=== PATIENT | female | born 1950 | race Caucasian/White ===

== ENCOUNTER → 2018-10-14 | Outpatient (CLI) | payer OTHER | END | disposition home or self-care (01) | LOC: RAH 11:33 | PROVIDERS: ATTEND Family Medicine | DX: N63.10 Unspecified lump in the right breast, unspecified quadrant (principal); R92.8 Other abnormal and inconclusive findings on diagnostic imaging of breast | CPT/HCPCS: 76641 ==

== ENCOUNTER → 2019-11-11 | Outpatient (CLI) | payer OTHER | END | disposition home or self-care (01) ==

== ENCOUNTER → 2020-08-09 | Outpatient (CLI) | payer OTHER | END | disposition home or self-care (01) | LOC: RAH 11:35 | DX: M17.12 Unilateral primary osteoarthritis, left knee (principal) | CPT/HCPCS: 73562 ==

== ENCOUNTER 2020-11-30 09:31 | Observation (INO) | payer OTHER ==
[2020-11-25 10:34] LABS: BASOPHILS % (AUTO) 0.5 % (0.0-5.0); EOSINOPHILS % (AUTO) 1.1 % (0.0-8.0); HEMATOCRIT 38.9 % (36-48); MEAN CORPUSCULAR HEMOGLOBIN 29.7 pg (27.0-33.0); MEAN CORPUSCULAR HGB CONC 31.1 g/dL (32.0-36.0); MEAN CORPUSCULAR VOLUME 95.3 fL (79-99); MONOCYTES % (AUTO) 8.3 % (3.0-13.0); NEUTROPHILS % (AUTO) 60.7 % (40.0-77.0); PLATELET COUNT (AUTO) 279 K/uL (130-400); RED BLOOD CELL COUNT(AUTO) 4.08 MIL/uL (4.00-5.50); RED CELL DISTRIBUTION WIDTH 15.6 % (11.0-15.5); WHITE BLOOD COUNT (AUTO) 5.5 K/uL (4.8-10.8)
[2020-11-25 10:38] LABS: APPEARANCE,URINE Clear (CLEAR); BILIRUBIN,URINE Negative (NEGATIVE); COLOR,URINE Yellow (YELLOW); GLUCOSE, URINE (UA) Negative (NEGATIVE); KETONES,URINE Negative (NEGATIVE); LEUKOCYTE ESTERASE ,URINE Trace (NEGATIVE); NITRATE,URINE Negative (NEGATIVE); OCCULT BLOOD,URINE Negative (NEGATIVE); PH,URINE 6.5 (5.0-8.0); PROTEIN,URINE Negative (NEGATIVE); UROBILINOGEN,URINE 0.2 mg/dL (0.2-1.0)
[2020-11-25 10:39] LABS: CREATININE 0.6 mg/dL (0.5-1.5); POTASSIUM 4.4 mmol/L (3.5-5.1)
[2020-11-25 10:42] LABS: INR 0.95 (0.85-1.15); PROTHROMBIN TIME 10.4 SEC (9.6-11.6)
[2020-11-25 11:00] LABS: BACTERIA,URINE None Seen /HPF (None Seen); RBC,URINE 0-1 /HPF (0-1); SQUAMOUS EPITHELIAL CELL,UR None Seen /HPF (0-2); WBC,URINE None Seen /HPF (0-1)
[2020-11-29 16:03] VITALS: BP 142/62
[~2020-11-30] VITALS: Ht 162.6 cm; Wt 72.0 kg
[2020-11-30] VITALS (24 sets, daily range): BP systolic 90–137; BP diastolic 47–72
[2020-11-30] MEDS: CLINDAMYCIN IVPB 900MG/50ML 50 ML IV SCH ×2 (08:00→16:50)
[~2020-11-30 09:31] MED LIST: ATOR10TA69 PO; CHOL-4 PO; CYAN1TAB44 PO; ESOM40CA54 PO; IRON-15 PO; MV-M1TAB57 PO; OMEGA 3 PO
[2020-11-30] MEDS ORDERED: LACTATED RINGERS 1000ML 1,000 ML IV ONE (10:25)
[2020-11-30] MEDS ORDERED: CEFAZOLIN SODIUM 1 GM VIAL ONE (10:25)
[2020-11-30] MEDS ORDERED: ACETAMINOPHEN 500 MG TABLET ONE (12:42)
[2020-11-30] MEDS ORDERED: KETOROLAC 15MG/ML VIAL (15MG/ML) ONE (12:43)
[2020-11-30] MEDS ORDERED: TRANEXAMIC ACID 1000MG/10ML ONE ×2 (12:43→18:17)
[2020-11-30] MEDS ORDERED: CLINDAMYCIN IVPB 900MG/50ML 50 ML IV ONE (16:05)
[2020-11-30] MEDS ORDERED: PROPOFOL 10 MG/ML 20ML VIAL IV ONE (16:07)
[2020-11-30] MEDS ORDERED: MIDAZOLAM HCL 1 MG/ML 2ML VIAL ONE (16:07)
[2020-11-30] MEDS ORDERED: LIDOCAINE HCL-MPF 1% 5ML AMP IJ ONE (16:07)
[2020-11-30] MEDS ORDERED: FENTANYL CITRATE PF 50 MCG/1 ML 2ML VIAL ONE (16:07)
[2020-11-30] MEDS ORDERED: ROCURONIUM 10MG/1ML SYR 10 MG/ML ML ONE (16:16)
[2020-11-30] MEDS ORDERED: NEOSTIGMINE 5MG/5ML SYR IV ONE (18:18)
[2020-11-30] MEDS ORDERED: GLYCOPYRROLATE 1 MG/5 ML SYRINGE ONE (18:18)
[2020-11-30] MEDS ORDERED: POTASSIUM CHLORIDE 20MEQ/100ML 100 ML IV PRN (18:30)
[2020-11-30] MEDS ORDERED: DiphenhydrAMINE HCL 50 MG/ML VIAL IVP PRN (18:30)
[2020-11-30] MEDS: 0.9%NACL 1000ML 1,000 ML IV SCH (18:30)
[2020-11-30] MEDS ORDERED: TEMAZEPAM 15 MG CAPSULE PO PRN (18:30)
[2020-11-30] MEDS ORDERED: KCL 20 MEQ ERTAB PO PRN (18:30)
[2020-11-30] MEDS ORDERED: CALCIUM CARB 500MG PO PRN (18:30)
[2020-11-30] MEDS ORDERED: TRAMADOL HCL 50 MG TABLET PO PRN (18:30)
[2020-11-30] MEDS ORDERED: LIDOCAINE HCL-MPF 1% 2ML VIAL IV PRN (18:30)
[2020-11-30] MEDS ORDERED: POTASSIUM CHLORIDE 10% ELIXIR 20 MEQ/15 ML UDCUP PO PRN (18:30)
[2020-11-30] MEDS ORDERED: OXYCODONE HCL 5 MG TAB PO PRN (18:30)
[2020-11-30] MEDS ORDERED: FERROUS FUMARATE 324 MG TABLET PO PRN (18:30)
[2020-11-30] MEDS ORDERED: ONDANSETRON 4MG INJ IVP PRN (18:30)
[2020-11-30] MEDS: CLINDAMYCIN 900MG/6ML INJ ONE ×2 (18:30→18:31)
[2020-11-30] MEDS: CELECOXIB 200 MG CAP PO SCH (21:14)
[2020-11-30] MEDS: OXYCODONE HCL 5 MG TAB PO PRN (21:14)
[2020-11-30] MEDS: ASPIRIN 81MG CHEW TAB PO SCH (21:14)
[2020-11-30] MEDS: ACETAMINOPHEN 500 MG TABLET PO SCH ×2 (21:15→23:22)
[2020-11-30] MEDS: PREGABALIN 25 MG CAP PO SCH (21:19)
[2020-11-30] MEDS: CLINDAMYCIN IVPB 900MG/50ML 50 ML IVPB SCH (23:24)
[2020-12-01 03:43] VITALS: BP 114/63
[2020-12-01 04:01] LABS: HEMATOCRIT 30.2 % (36-48); MEAN CORPUSCULAR HEMOGLOBIN 29.3 pg (27.0-33.0); MEAN CORPUSCULAR HGB CONC 32.1 g/dL (32.0-36.0); MEAN CORPUSCULAR VOLUME 91.2 fL (79-99); RED BLOOD CELL COUNT(AUTO) 3.31 MIL/uL (4.00-5.50); RED CELL DISTRIBUTION WIDTH 14.8 % (11.0-15.5); WHITE BLOOD COUNT (AUTO) 9.1 K/uL (4.8-10.8)
[2020-12-01] MEDS: 0.9%NACL 1000ML 1,000 ML IV SCH ×2 (04:18→09:34)
[2020-12-01 04:32] LABS: CREATININE 0.6 mg/dL (0.5-1.5); POTASSIUM 4.1 mmol/L (3.5-5.1)
[2020-12-01] MEDS: OXYCODONE HCL 5 MG TAB PO PRN ×2 (04:37→20:51)
[2020-12-01] MEDS: CLINDAMYCIN IVPB 900MG/50ML 50 ML IVPB SCH (06:26)
[2020-12-01] MEDS: CELECOXIB 200 MG CAP PO SCH ×2 (07:45→20:29)
[2020-12-01] MEDS: ASPIRIN 81MG CHEW TAB PO SCH ×2 (07:45→20:29)
[2020-12-01] MEDS: PREGABALIN 25 MG CAP PO SCH ×2 (07:45→20:28)
[2020-12-01] MEDS: ATORVASTATIN 10 MG TABLET PO SCH (07:53)
[2020-12-01] MEDS: POLYETHYLENE GLYCOL 3350 17 GM POWD.PACK PO SCH (07:53)
[2020-12-01] MEDS: PANTOPRAZOLE 40 MG TAB DR PO SCH (07:53)
[2020-12-01] MEDS: FOLIC ACID PO SCH (07:54)
[2020-12-01] MEDS: KETOROLAC 15MG/ML VIAL (15MG/ML) IV PRN (07:54)
[2020-12-01] MEDS: CHOLECALCIFEROL 250 MCG PO SCH (07:54)
[2020-12-01] MEDS: CYANOCOBALAMIN PO SCH (07:54)
[2020-12-01 08:00] VITALS: BP 114/54
[2020-12-01] MEDS: ACETAMINOPHEN 500 MG TABLET PO SCH ×2 (10:11→17:49)
[2020-12-01 11:59] VITALS: BP 97/48
[2020-12-01 16:00] VITALS: BP 122/47
[2020-12-01 20:08] VITALS: BP 124/52
[2020-12-02 00:08] VITALS: BP 113/52
[2020-12-02] MEDS: ACETAMINOPHEN 500 MG TABLET PO SCH ×2 (01:12→10:42)
[2020-12-02 04:05] LABS: BASOPHILS % (AUTO) 0.3 % (0.0-5.0); EOSINOPHILS % (AUTO) 0.9 % (0.0-8.0); HEMATOCRIT 27.5 % (36-48); LYMPHOCYTES % (AUTO) 25.5 % (21.0-51.0); MEAN CORPUSCULAR HEMOGLOBIN 29.5 pg (27.0-33.0); MEAN CORPUSCULAR HGB CONC 31.6 g/dL (32.0-36.0); MEAN CORPUSCULAR VOLUME 93.2 fL (79-99); MONOCYTES % (AUTO) 13.6 % (3.0-13.0); NEUTROPHILS % (AUTO) 59.2 % (40.0-77.0); PLATELET COUNT (AUTO) 188 K/uL (130-400); RED BLOOD CELL COUNT(AUTO) 2.95 MIL/uL (4.00-5.50); RED CELL DISTRIBUTION WIDTH 14.9 % (11.0-15.5); WHITE BLOOD COUNT (AUTO) 6.4 K/uL (4.8-10.8)
[2020-12-02 04:08] VITALS: BP 104/51
[2020-12-02 07:51] VITALS: BP 128/53
[2020-12-02] MEDS: KETOROLAC 15MG/ML VIAL (15MG/ML) IV PRN (08:25)
[2020-12-02] MEDS: ASPIRIN 81MG CHEW TAB PO SCH (08:26)
[2020-12-02] MEDS: PREGABALIN 25 MG CAP PO SCH (08:26)
[2020-12-02] MEDS: ATORVASTATIN 10 MG TABLET PO SCH (08:27)
[2020-12-02] MEDS: PANTOPRAZOLE 40 MG TAB DR PO SCH (08:27)
[2020-12-02] MEDS: CELECOXIB 200 MG CAP PO SCH (08:27)
[2020-12-02] MEDS: POLYETHYLENE GLYCOL 3350 17 GM POWD.PACK PO SCH (08:27)
[2020-12-02] MEDS: FOLIC ACID PO SCH (08:28)
[2020-12-02] MEDS: CYANOCOBALAMIN PO SCH (08:28)
[2020-12-02] MEDS: CHOLECALCIFEROL 250 MCG PO SCH (08:28)
[2020-12-02 10:57] VITALS: BP 128/56
[2020-12-02] MEDS ORDERED: AEC81 PO (12:42)
[2020-12-02] MEDS ORDERED: HYDR-4060 PO (12:42)
[2020-12-02] MEDS ORDERED: FERR324T10 PO (12:42)
[2020-12-03] MEDS ORDERED: BISACODYL 10 MG SUPP.RECT RC PRN (18:30)
== END 2020-12-02 15:38 | disposition home health service (06) ==
LOC: DAH 09:31 → 4AH 09:32
PROVIDERS: ADMIT Orthopaedic Surgery; ATTEND Orthopaedic Surgery
DX: M17.12 Unilateral primary osteoarthritis, left knee (principal); E78.00 Pure hypercholesterolemia, unspecified; Z79.899 Other long term (current) drug therapy; Z20.822 Contact with and (suspected) exposure to COVID-19
CPT/HCPCS: 27447; 36415 ×3; 80048 ×2; 81001; 82948; 85025 ×2; 85027; 85610; 87088; 87635; 87641 ×2; 93005; 96361; 96365; 96366; 96375; 96376; 97039 ×4; 97116 ×4; 97161; 97530 ×2; A4215; A4221; A4222; A4223; A4600; A4649 ×3; A4663; A4930; A5120; A9272; C1776; C9803; G0378 ×44; G8978; G8979; G8980; G8981; G8982; G8983; J1885 ×3; J2250; J2704; J2710; J3010; J3490 ×7; J7030; J7120 ×2; J0690

== ENCOUNTER → 2021-07-13 | Outpatient (CLI) | payer MEDICARE, OTHER ==
[~2021-07-13] MED LIST changes: +AEC81 PO; +FERR324T10 PO; +HYDR-4060 PO
== END | disposition home or self-care (01) ==
LOC: RAH 10:42
PROVIDERS: ATTEND Internal Medicine
DX: Z12.31 Encounter for screening mammogram for malignant neoplasm of breast (principal)
CPT/HCPCS: 77067

== ENCOUNTER 2021-08-10 06:18 | Day surgery (SDC) | payer MEDICARE ==
[2021-08-08 10:47] LABS: BASOPHILS % (AUTO) 0.7 % (0.0-5.0); EOSINOPHILS % (AUTO) 1.5 % (0.0-8.0); HEMATOCRIT 36.5 % (36-48); LYMPHOCYTES % (AUTO) 18.3 % (21.0-51.0); MEAN CORPUSCULAR HEMOGLOBIN 28.2 pg (27.0-33.0); MONOCYTES % (AUTO) 7.9 % (3.0-13.0); NEUTROPHILS % (AUTO) 71.5 % (40.0-77.0); PLATELET COUNT (AUTO) 276 K/uL (130-400); RED BLOOD CELL COUNT(AUTO) 4.01 MIL/uL (4.00-5.50); RED CELL DISTRIBUTION WIDTH 13.9 % (11.0-15.5); WHITE BLOOD COUNT (AUTO) 7.2 K/uL (4.8-10.8)
[2021-08-08 10:57] LABS: CREATININE 0.5 mg/dL (0.5-1.5); POTASSIUM 4.6 mmol/L (3.5-5.1)
[2021-08-09 10:11] VITALS: BP 145/71
[~2021-08-10] VITALS: Ht 162.6 cm; Wt 78.9 kg
[2021-08-10] VITALS (16 sets, daily range): BP systolic 115–130; BP diastolic 52–65
[2021-08-10] MEDS: CLINDAMYCIN IVPB 900MG/50ML 50 ML IV SCH ×2 (06:00→08:30)
[~2021-08-10 06:18] MED LIST changes: -AEC81 PO; +APPLE CIDER PO; -CHOL-4 PO; -CYAN1TAB44 PO; +CYAN50003 PO; -FERR324T10 PO; +GABA-529 PO; -HYDR-4060 PO; -IRON-15 PO; -OMEGA 3 PO
[2021-08-10] MEDS ORDERED: LACTATED RINGERS 1000ML 1,000 ML IV ONE (07:08)
[2021-08-10] MEDS ORDERED: LIDOCAINE PF 100MG/5ML (2%) SYRINGE 5ML ONE (07:20)
[2021-08-10] MEDS ORDERED: SUCCINYLCHOLINE 200MG/10ML SYR ONE (07:20)
[2021-08-10] MEDS ORDERED: DEXAMETHASONE SOD PHOSPHATE 10MG/ML 1ML VIAL ONE (07:20)
[2021-08-10] MEDS ORDERED: PROPOFOL 10 MG/ML 20ML VIAL IV ONE (07:20)
[2021-08-10] MEDS ORDERED: NEOSTIGMINE 5MG/5ML SYR IV ONE (07:20)
[2021-08-10] MEDS ORDERED: ONDANSETRON 4MG INJ ONE (07:20)
[2021-08-10] MEDS ORDERED: SUCCINYLCHOLINE CHLORIDE 20 MG/ML 10 ML VIAL ONE (07:20)
[2021-08-10] MEDS ORDERED: GLYCOPYRROLATE 1 MG/5 ML SYRINGE ONE (07:20)
[2021-08-10] MEDS ORDERED: ROCURONIUM 10MG/1ML SYR 10 MG/ML ML ONE (07:21)
[2021-08-10] MEDS ORDERED: FENTANYL CITRATE PF 50 MCG/1 ML 2ML VIAL ONE (07:21)
[2021-08-10] MEDS ORDERED: MIDAZOLAM HCL 1 MG/ML 2ML VIAL ONE (07:21)
[2021-08-10] MEDS ORDERED: 0.9%NACL 1000ML 1,000 ML IV ONE (07:29)
[2021-08-10] MEDS ORDERED: MEPERIDINE-PF 25 MG/ML SYG ONE (08:57)
[2021-08-10] MEDS ORDERED: TRAM50TA4 PO (10:18)
[2021-08-10] MEDS ORDERED: SULF1TAB42 PO (10:18)
[2021-08-10] MEDS ORDERED: KETOROLAC 30MG VIAL (30MG/ML) ONE (10:34)
== END 2021-08-10 11:35 | disposition home or self-care (01) ==
LOC: DAH 06:18
PROVIDERS: ATTEND Orthopaedic Surgery
DX: M25.562 Pain in left knee (principal); Z20.822 Contact with and (suspected) exposure to COVID-19; M25.462 Effusion, left knee; G89.29 Other chronic pain; M19.90 Unspecified osteoarthritis, unspecified site; K21.9 Gastro-esophageal reflux disease without esophagitis; Z96.652 Presence of left artificial knee joint; Z79.899 Other long term (current) drug therapy; Z88.8 Allergy status to other drugs, medicaments and biological substances; Z88.0 Allergy status to penicillin; Z83.3 Family history of diabetes mellitus; Z82.49 Family history of ischemic heart disease and other diseases of the circulatory system; Z88.6 Allergy status to analgesic agent; Z98.890 Other specified postprocedural states
CPT/HCPCS: 29873; 29884; 36415; 80048; 82948; 85025; 87635; A4215; A4221; A4222; A4223; A4649 ×2; A4663; A4930 ×2; A6223; C9803; J0330 ×2; J1100; J1885; J2001; J2175; J2250; J2405; J2704; J2710; J3010; J3490 ×2; J7030; J7120

== ENCOUNTER → 2022-07-26 | Outpatient (CLI) | payer OTHER ==
[~2022-07-26] MED LIST changes: +SULF1TAB42 PO; +TRAM50TA4 PO
== END | disposition home or self-care (01) ==
LOC: RAH 08:20
DX: Z12.31 Encounter for screening mammogram for malignant neoplasm of breast (principal)
CPT/HCPCS: 77067

== ENCOUNTER → 2022-11-07 | Outpatient (CLI) | payer OTHER ==
[~2022-11-07] MED LIST changes: -CYAN50003 PO; +CYAN50007 PO
== END | disposition home or self-care (01) ==
LOC: RAH 10:32
DX: M25.562 Pain in left knee (principal); Z96.652 Presence of left artificial knee joint
CPT/HCPCS: 73560

== ENCOUNTER → 2023-07-23 | Outpatient (CLI) | payer OTHER | END | disposition home or self-care (01) | LOC: RAH 13:04 | PROVIDERS: ATTEND Family Medicine | DX: J32.3 Chronic sphenoidal sinusitis (principal); G44.221 Chronic tension-type headache, intractable; J32.0 Chronic maxillary sinusitis; J32.2 Chronic ethmoidal sinusitis; J33.8 Other polyp of sinus | CPT/HCPCS: 70551 ==

== ENCOUNTER → 2024-04-03 | Outpatient (CLI) | payer OTHER ==
[~2024-04-03] MED LIST changes: -ESOM40CA54 PO; +ESOM40CA66 PO
--- NOTE | 2024-04-03 12:31 | HMCIMG ---
MRCP(ABDWWO)CHOLANGIOPANCREATO HISTORY: Right upper quadrant pain COMPARISON: CT from April 12, 2016 TECHNIQUE: MRI of the abdomen was performed utilizing multiple pulse sequences in axial, coronal and sagittal planes. Patient was not given contrast through intravenous route. MRCP was obtained. FINDINGS: No pleural effusion is seen bilaterally. Liver measures 17 cm. Gallbladder is not well seen. Spleen, adrenal glands and pancreas are unremarkable. Both kidneys are seen without hydronephrosis. There is no evidence of adenopathy or ascites. Common duct is prominent measuring 9.1 mm. Questionable filling defect is seen in the proximal common duct may be related to common duct stone. IMPRESSION: 1. Gallbladder is not seen. Common duct is prominent measuring 9.1 mm. Questionable filling defect is seen in the proximal common duct may be related to common duct stone.
== END | disposition home or self-care (01) ==
LOC: RAH 09:18
PROVIDERS: ATTEND Internal Medicine Gastroenterology
DX: R10.11 Right upper quadrant pain (principal); R12 Heartburn
CPT/HCPCS: 74181; S8037

== ENCOUNTER → 2024-04-22 | Outpatient (CLI) | payer OTHER ==
[~2024-04-22] MED LIST changes: +GADOTERATE MEGLUMINE 10 MMOL/20 ML VIAL IV ONE
--- NOTE | 2024-04-22 10:39 | HMCIMG ---
2 findings 2. MRCP(ABDWO)CHOLANGIOPANCREATO REASON: R10.11 Right upper quadrant pain COMPARISON: 11 12/27/2023 swallowing possible common duct stone. There is normal appearance of the liver. There are no focal liver lesions. Spleen and kidneys appear normal. TECHNIQUE: MRI abdomen was performed in the coronal and axial plane. Images were acquired pre and post gadolinium contrast, Clariscan 17 cc. MRCP images were generated as well. FINDINGS: There is normal appearance of the liver. There are no focal liver lesions. Gallbladder is absent. Common duct measures between 5 and 6 mm, within normal limits. There are no filling defects to suggest stone. Spleen and pancreas appear normal as do both kidneys. Postcontrast images show normal findings. There are no focal masses. There are no focal areas of abnormal contrast enhancement. IMPRESSION: 1. Absent gallbladder. 2. Otherwise unremarkable MRI abdomen the pre and postcontrast as well as MRCP images.
== END | disposition home or self-care (01) ==
LOC: RAH 07:43
PROVIDERS: ATTEND Internal Medicine
DX: R10.11 Right upper quadrant pain (principal); Z90.49 Acquired absence of other specified parts of digestive tract
CPT/HCPCS: 74183; A9575

== ENCOUNTER → 2024-07-02 | Outpatient (CLI) | payer OTHER ==
[~2024-07-02] MED LIST changes: -GADOTERATE MEGLUMINE 10 MMOL/20 ML VIAL IV ONE
--- NOTE | 2024-07-02 15:38 | HMCIMG ---
BONE DENSITOMETRY: HISTORY: POST MENOPAUSAL Comparison: none FINDINGS: BMD measured at Left Femoral Neck is 0.696 g/cm2 with a T-score of -1.4 Bone density is between 10 and 25% below young normal. This patient is considered osteopenic. Fracture risk is moderate. BMD measured at Left Femoral Total is 0.816 g/cm2 with a T-score of -1.0 Bone density is up to 10% below young normal. This patient is considered normal according to WHO criteria. Fracture risk is low. IMPRESSION: Osteopenia. Treatment and follow-up recommended.
--- NOTE | 2024-07-03 08:59 | HMCIMG ---
Exam Type: MAMMO SCREENING BILATERAL Clinical Information: July 26, 2022 Comparison: None Technique: Mammogram with CAD was performed with CC and MLO projections. CAD shows no worrisome regions. FINDINGS: The breasts are heterogeneously dense, which may obscure small masses. No dominant mass or suspicious microcalcification identified. There is no nipple retraction or skin thickening. Benign-appearing calcifications are seen. CAD shows no worrisome regions. IMPRESSION: 1. No mammographic signs of malignancy. 2. Routine follow-up recommended. CATEGORY 2: BENIGN FINDINGS Note: A negative x-ray should not delay biopsy if a dominant or clinically suspicious mass is present, since 8-10% of cancers are not identified by mammography. Dense breasts may obscure an underlying neoplasm.
== END | disposition home or self-care (01) ==
LOC: RAH 13:56
PROVIDERS: ATTEND Family Medicine
DX: Z12.31 Encounter for screening mammogram for malignant neoplasm of breast (principal); R92.333 Mammographic heterogeneous density, bilateral breasts; M85.852 Other specified disorders of bone density and structure, left thigh; Z78.0 Asymptomatic menopausal state
CPT/HCPCS: 77067; 77080